=== PATIENT | female | born 2000 | race Two or more races ===

== ENCOUNTER 2020-10-28 13:49 | Inpatient (IN) | payer MEDICAID ==
[~2020-10-28] VITALS: Ht 157.5 cm; Wt 68.9 kg
[2020-10-28] MEDS ORDERED: TERBUTALINE 1 MG/ML VIAL. SQ PRN (14:30)
[2020-10-28] MEDS ORDERED: 0.9 % SODIUM CHLORIDE 10 ML DISP.SYRIN. IV PRN ×2 (14:30→16:45)
[2020-10-28] MEDS ORDERED: ACETAMINOPHEN 325 MG TABLET. PO PRN ×2 (14:30→16:45)
[2020-10-28] MEDS ORDERED: LIDOCAINE 1% PF 30 ML VIAL. INJ PRN (14:30)
[2020-10-28] MEDS ORDERED: BUTORPHANOL 2 MG/ML VIAL. IVP PRN ×2 (14:30)
[2020-10-28] MEDS ORDERED: OXYTOCIN 30 UNIT/500 ML PREMIX 500 ML IV PRN ×3 (14:30→16:45)
[2020-10-28] MEDS: IV RINGERS,LACTATED 1000ML 1,000 ML IV SCH ×2 (14:45→14:49)
--- NOTE | 2020-10-28 15:18 | PDOC1 ---
[employer] H&P Date of Admission: Date of Admission: Oct 28, 2020 at 14:28 History of Present Illness: EDC: 11/07/20 LMP: 02/19/20 20y @ 38.4 by 17wk u/s presents with ctxs. The pt was found to be dilated to 6 cm on presentation. The pt was subsequently admitted. The pts GBS was obtained yesterday. PMH: Denies PSH: Denies Meds: PNV All: NKDA OBHx: TSVD x 2 SH: no tob, no EtOH FH: Noncontributory Medications: Meds: Current Medications Medications (Trade) Dose Ordered Sig/Vivek Route PRN Reason Start Time Stop Time Status Last Admin Dose Admin Ringer's Solution 1,000 ml @ 125 mls/hr Q8H IV 10/28/20 14:30 UNV 10/28/20 14:49 Oxytocin 500 ml @ 0 mls/hr CONT PRN IV SEE I/O RECORD 10/28/20 14:30 UNV 10/28/20 14:48 Physical Exam: PE: GENERAL: No apparent distress. Alert and oriented. HEENT: Head normocephalic, atraumatic. NECK: Supple LUNGS: Clear to auscultation. HEART: RRR, S1, S2 present, pulses intact ABDOMEN: Soft, positive bowel sounds. EXTREMITIES: No cyanosis or edema. NEUROLOGIC: Normal speech, normal tone PSYCHIATRIC: Normal affect, normal mood. SKIN: No ulceration. FHT: 120s +acels/no decels/mLTV Hodgkins: 1-2 min SVE: 6/C/0 Assessment & Plan: A/P 20y @ 38.4 by 17wk u/s 1.) Active labor 2.) LSIL pap 3.) Flu given 08/03/20 4.) TDAP given 08/30/20 5.) Fetus cat I FHT 6.) GBS pending no risk factors 7.) Boy - Ever ISELA CARDONA MD Oct 28, 2020 15:18
[2020-10-28 15:28] LABS: BASO # 0.1 x10^3/uL (0.0-0.2); BASO % 0 % (0-3); EOS % 0 % (0-3); HEMATOCRIT 35.2 % (36.0-47.0); HEMOGLOBIN 11.3 g/dL (12.0-15.5); LYMPH # 1.4 x10^3/uL (1.0-4.8); LYMPH % 7 % (24-48); MEAN CORPUSCULAR HEMOGLOBIN 28 pg (25-35); MEAN CORPUSCULAR HGB CONC 32 g/dL (31-37); MEAN CORPUSCULAR VOLUME 85 fL (79-100); MONO # 0.7 x10^3/uL (0.0-1.1); MONO % 3 % (0-9); NEUT # 18.3 x10^3/uL (1.8-7.7); NEUT % 90 % (31-73); PLATELET COUNT 276 x10^3/uL (140-400); RED BLOOD COUNT 4.13 x10^6/uL (3.50-5.40); RED CELL DISTRIBUTION WIDTH 13.5 % (11.5-14.5); WHITE BLOOD COUNT 20.4 x10^3/uL (4.0-11.0)
--- NOTE | 2020-10-28 16:39 | PDOC ---
VAGINAL DELIVERY DATE DATE: 10/28/20 TIME: 16:37 TIME Patient delivered a viable male infant over intact perineum at 1627. Wt 7 lb 8.3 oz. Apgars 8/9. Placenta delivered spontaneously, intact with 3VC. No lacerations noted. Good hemostasis noted. 20 U of Pit given with IVF. EBL 200cc. WEIGHT Weight [ ] ISELA CARDONA MD Oct 28, 2020 16:39
[2020-10-28 16:41] LABS: % BANDS 1 % (0-9); % LYMPHS 4 % (24-48); % MONOS 5 % (0-10); % SEGS 90 % (35-66); PLT ESTIMATE ADEQUATE (ADEQUATE)
[2020-10-28] MEDS ORDERED: MAGNESIUM HYDROXIDE 2,400 MG/30 ML ORAL.SUSP. PO PRN (16:45)
[2020-10-28] MEDS ORDERED: IBUPROFEN 400 MG TABLET. PO PRN (16:45)
[2020-10-28] MEDS ORDERED: ZOLPIDEM 5 MG TABLET. PO PRN (16:45)
[2020-10-28] MEDS ORDERED: PHENYLEPH/MINERAL OIL/PETROLAT RECTAL OINTMENT TUBE. RC PRN (16:45)
[2020-10-28] MEDS ORDERED: oxyCODONE/APAP 5/325 1 TAB TABLET PO PRN (16:45)
[2020-10-28] MEDS ORDERED: diphenhydrAMINE HCL 25 MG CAPSULE PO PRN (16:45)
[2020-10-28] MEDS ORDERED: MAG HYDROX/ALUMINUM HYD/SIMETH 30 ML ORAL.SUSP PO PRN (16:45)
[2020-10-28] MEDS ORDERED: DOCUSATE SODIUM 100 MG CAPSULE. PO PRN (16:45)
[2020-10-28] MEDS ORDERED: SIMETHICONE 80 MG TAB.CHEW PO PRN (16:45)
[2020-10-28] MEDS ORDERED: TDaP (Adacel) per PROTOCOL. MC PRN (16:45)
[2020-10-28] MEDS ORDERED: HYDROCORTISONE 1% TOPICAL OINTMENT 30GM TUBE. TP PRN (16:45)
[2020-10-28] MEDS ORDERED: MMR per PROTOCOL. MC PRN (16:45)
[2020-10-28] MEDS ORDERED: BENZOCAINE 20% TOPICAL AEROSOL SPRAY 57GM CAN. TP PRN (16:45)
[2020-10-28] MEDS ORDERED: IV NORMAL SALINE 1000ML BAG 1,000 ML IV SCH (19:30)
--- NOTE | 2020-10-28 21:00 | NUR ---
pt transferred to 3n in wheelchair in stable alert condition orientated to room,v/u of all instruction
[2020-10-28 21:26] VITALS: BP 98/76
[2020-10-29 01:34] VITALS: BP 110/60
[2020-10-29 04:00] VITALS: BP 98/66
[2020-10-29] MEDS ORDERED: FERROUS SULFATE 325 MG TABLET. PO SCH (08:00)
[2020-10-29] MEDS: PRENATAL MULTIVITAMIN TABLET. PO SCH (08:42)
[2020-10-29 09:09] LABS: HEMATOCRIT 30.1 % (36.0-47.0); HEMOGLOBIN 9.9 g/dL (12.0-15.5); RED BLOOD COUNT 3.52 x10^6/uL (3.50-5.40); RED CELL DISTRIBUTION WIDTH 13.6 % (11.5-14.5); WHITE BLOOD COUNT 17.7 x10^3/uL (4.0-11.0)
[2020-10-29 09:18] VITALS: BP 11/57
--- NOTE | 2020-10-29 11:47 | PDOC ---
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 Paramjit PO. Voiding. Minimal lochia Objective: Vital Signs: Vital Signs Date Time Temp Pulse Resp B/P (MAP) Pulse Ox O2 Delivery O2 Flow Rate FiO2 10/28/20 17:54 Room Air 10/28/20 21:26 98.9 88 18 98/76 (83) 98 98.9 Vital Signs Date Time Temp Pulse Resp B/P (MAP) Pulse Ox O2 Delivery O2 Flow Rate FiO2 10/29/20 09:18 98.2 84 20 11/57 (42) 98 98.2 10/28/20 21:26 Room Air Labs: Laboratory Tests Test 10/28/20 14:15 10/28/20 14:30 10/29/20 08:34 White Blood Count 20.4 x10^3/uL (4.0-11.0) H 17.7 x10^3/uL (4.0-11.0) H Red Blood Count 4.13 x10^6/uL (3.50-5.40) 3.52 x10^6/uL (3.50-5.40) Hemoglobin 11.3 g/dL (12.0-15.5) L 9.9 g/dL (12.0-15.5) L Hematocrit 35.2 % (36.0-47.0) L 30.1 % (36.0-47.0) L Mean Corpuscular Volume 85 fL (79-100) 86 fL (79-100) Mean Corpuscular Hemoglobin 28 pg (25-35) 28 pg (25-35) Mean Corpuscular Hemoglobin Concent 32 g/dL (31-37) 33 g/dL (31-37) Red Cell Distribution Width 13.5 % (11.5-14.5) 13.6 % (11.5-14.5) Platelet Count 276 x10^3/uL (140-400) 255 x10^3/uL (140-400) Neutrophils (%) (Auto) 90 % (31-73) H Lymphocytes (%) (Auto) 7 % (24-48) L Monocytes (%) (Auto) 3 % (0-9) Eosinophils (%) (Auto) 0 % (0-3) Basophils (%) (Auto) 0 % (0-3) Neutrophils # (Auto) 18.3 x10^3/uL (1.8-7.7) H Lymphocytes # (Auto) 1.4 x10^3/uL (1.0-4.8) Monocytes # (Auto) 0.7 x10^3/uL (0.0-1.1) Eosinophils # (Auto) 0.0 x10^3/uL (0.0-0.7) Basophils # (Auto) 0.1 x10^3/uL (0.0-0.2) Segmented Neutrophils % 90 % (35-66) H Band Neutrophils % 1 % (0-9) Lymphocytes % 4 % (24-48) L Monocytes % 5 % (0-10) Platelet Estimate Adequate (ADEQUATE) Treponema pallidum Antibody Nonreactive (Nonreactive) SARS-CoV-2 Antigen (Rapid) Negative (NEGATIVE) Laboratory Tests 10/28/20 14:15 10/29/20 08:34 Laboratory Tests 10/29/20 08:34 Physical Exam: GENERAL: No apparent distress. Alert and oriented. HEENT: Head normocephalic, atraumatic. NECK: Supple LUNGS: Clear to auscultation. HEART: RRR, S1, S2 present, pulses intact ABDOMEN: Soft, positive bowel sounds. EXTREMITIES: No cyanosis or edema. NEUROLOGIC: Normal speech, normal tone PSYCHIATRIC: Normal affect, normal mood. SKIN: No ulceration. FFNT below umb No C/C/E Assessment & Plan: A/P 20y PPD #1 s/p 1.) PP doing well 2.) LSIL pap 3.) Flu given 08/03/20 4.) TDAP given 08/30/20 5.) Anemia - Hgb 11.3 -> 9.9 6.) Cont PP care ISELA CARDONA MD Oct 29, 2020 11:47
[2020-10-29 17:40] VITALS: BP 107/61
[2020-10-29 20:12] VITALS: BP 110/60
[2020-10-30 05:07] VITALS: BP 110/66
[2020-10-30 09:00] VITALS: BP 122/65
[2020-10-30] MEDS: PRENATAL MULTIVITAMIN TABLET. PO SCH (09:26)
--- NOTE | 2020-10-30 11:21 | PDOC ---
[employer] LICENSEE PROGRESS NOTE Date of Service: DATE: 10/30/20 TIME: 11:20 Subjective: P with good pain control. Paramjit PO. Voiding. Minimal lochia. Objective: Vital Signs: Vital Signs Date Time Temp Pulse Resp B/P (MAP) Pulse Ox O2 Delivery O2 Flow Rate FiO2 10/29/20 09:18 98.2 84 20 11/57 (42) 98 98.2 10/30/20 05:07 Room Air Vital Signs Date Time Temp Pulse Resp B/P (MAP) Pulse Ox O2 Delivery O2 Flow Rate FiO2 10/30/20 09:00 98.3 81 20 122/65 (84) 99 98.3 10/30/20 05:07 Room Air Physical Exam: GENERAL: No apparent distress. Alert and oriented. HEENT: Head normocephalic, atraumatic. NECK: Supple LUNGS: Clear to auscultation. HEART: RRR, S1, S2 present, pulses intact ABDOMEN: Soft, positive bowel sounds. EXTREMITIES: No cyanosis or edema. NEUROLOGIC: Normal speech, normal tone PSYCHIATRIC: Normal affect, normal mood. SKIN: No ulceration. FFNT below umb no C/C/E Assessment & Plan: A/P 20y PPD #2 s/p 1.) PP doing well 2.) LSIL pap 3.) Flu given 08/03/20 4.) TDAP given 08/30/20 5.) Anemia - Hgb 11.3 -> 9.9 6.) D/c home ISELA CARDONA MD Oct 30, 2020 11:21
[2020-10-30] MEDS ORDERED: DOCU-109 PO (11:23)
[2020-10-30] MEDS ORDERED: IBUP-1060 PO (11:23)
--- NOTE | 2020-10-30 11:42 | DS ---
DATE OF DISCHARGE: 10/30/2020 ADMISSION DIAGNOSES: 1. Intrauterine at 38 weeks and 4 days by 17-week ultrasound. 2. Active labor. 3. Low-grade squamous intraepithelial lesion Pap. 4. GBS pending. DISCHARGE DIAGNOSES: 1. Intrauterine at 38 weeks and 4 days by 17-week ultrasound. 2. Active labor. 3. Low-grade squamous intraepithelial lesion Pap. 4. GBS negative. PROCEDURE: Spontaneous vaginal delivery. BRIEF HOSPITAL COURSE: The patient is a 20-year-old 4, para 2-0-1-2, who presented to Labor and Delivery at 38 weeks and 4 days by 17-week ultrasound with contractions. The patient was found to be 6 cm dilated on presentation. The patient had had a GBS performed the day before, which had not resulted. Since the patient had no risk factors, she was not started on antibiotics. The patient progressed and ultimately delivered by vaginal delivery, see delivery note for full detail. By day #2, the patient was meeting all discharge criteria and was subsequently discharged home. Of note, the patient's hemoglobin on admission was 11.3 and post delivery was found to be 9.9. DISCHARGE INSTRUCTIONS: The patient was told not to lift anything greater than 20 pounds, have pelvic rest for 6 weeks. CALL IF: The patient was to call if she had fevers, chills, nausea, vomiting, abdominal pain or any additional questions or concerns. DISCHARGE APPOINTMENT: The patient is to follow up at [facility] [place] 6 weeks' time for a appointment. The patient was to call for the appointment. DISCHARGE MEDICATIONS: The patient was given a prescription for Motrin 800 mg 30 pills and Colace 100 mg 30 pills. ISELA CARDONA MD DR: [email or web address]/ryan JOB#: [id number] / [id number]
[2020-10-30 15:41] VITALS: BP 110/66
== END 2020-10-30 16:50 | disposition home or self-care (01) | DRG 807 ==
LOC: 3 SO LND 13:49 → EDBD 13:49 → OBSVTOIN 14:28 → 3 NORTH 20:33
PROVIDERS: ADMIT Obstetrics & Gynecology; ATTEND Obstetrics & Gynecology
PROC: 10E0XZZ Delivery of Products of Conception, External Approach (ICD-10-PCS; principal; 2020-10-28)
DX: O34.43 Maternal care for other abnormalities of cervix, third trimester (principal); Z37.0 Single live birth; O90.81 Anemia of the puerperium; Z3A.38 38 weeks gestation of pregnancy; Z20.822 Contact with and (suspected) exposure to COVID-19; D64.9 Anemia, unspecified; R87.612 Low grade squamous intraepithelial lesion on cytologic smear of cervix (LGSIL)
CPT/HCPCS: 36415; 85007; 85025; 85027; 86592; 86850; 86900; 86901; 87426; G0379; J2590; J7120; U0003; G0378